=== PATIENT | female | born 1945 | race Caucasian/White ===

== ENCOUNTER → 2019-05-31 | Outpatient (CLI) | payer MEDICARE ==
[~2019-05-31] MED LIST: HYDROCODONE-AP1 EAC6 PO; LEXAPRO 10 MG T10 M2; PREDNISONE50 MG PO; PROAIR HFA8.5 GM IH; ZPAK PO
--- NOTE | 2019-05-31 15:10 | CARDNUC ---
[place] [address] CARDIAC NUCLEAR IMAGING REPORT Name: FRANKTERE Robyn Room: [facility]#: [id number] Admission: 05/31/19 Attend Phys: Jf Beauchamp, Discharge: Date of : 45 Date of Service: 05/31/19 1508 Report #: [id number] THIS REPORT FOR: cc: Tala Dunn Linda J. DO Liston, Michael J. MD [facility] ~ APPROVED REPORT Study performed: 05/31/2019 14:02:58 Exam: Nuclear Stress Test Indication: CAD , Dyspnea Patient Location: Out-Patient Stress Tech: Mendy Nolasco Stress Nurse: Kristal Christine RN NM Tech:COSTA Pantoja Ht: 5 ft 3 in Wt: 141 lbs BSA: 1.67 m2 BMI: 24.97 Medical History Medical History: hyperlipidemia Medications: atorvastatin, asa-81 Allergies: sulfa Cardiac Risk Factors: Age, FHX of CAD, Hyperlipidemia, Tobacco History (Former) Exercise History: Physically active Stress Test Details Stress Test: Exercise stress testing was performed using a Andre protocol. HR Resting HR: 82 bpm Max Heart Rate (APMHR): 147 bpm Max HR Achieved: 145 bpm Target HR (85% APMHR): 124 bpm % of APMHR: 98 Recovery HR: 96 bpm BP Resting BP: 152/77 mmHg Max BP: 211/73 mmHg ECG Resting ECG: Sinus Rhythm Stress ECG: [place] [address] CARDIAC NUCLEAR IMAGING REPORT Name: TERE MARIE Room: [facility]#: [id number] Admission: 05/31/19 Attend Phys: Jf Beauchamp, Discharge: Date of : 45 Date of Service: 05/31/19 1508 Report #: [id number] Change: None Arrhythmia: None Recovery ECG: Sinus Rhythm Recovery ST Change: None Recovery Arrhythmia: None Clinical Reason for Termination: Fatigue Exercise duration: 6 min 00 sec Exercise capacity: 7.05 METs Overall Exercise Capacity for Age: Superior Functional Aerobic Impairment 99% The patient tolerated exercise per standard Andre protocol without significant cardiac symptoms. Stress ECG Conclusion The baseline 12-lead EKG shows sinus rhythm without significant ST segment or T wave abnormality. EKGs obtained during and post exercise showed sinus rhythm and sinus tachycardia with no significant ST segment or T wave changes when compared to baseline. There were no stress-induced arrhythmias. NM EXAM: Myocardial Perfusion REST/STRESS Imaging Protocol: Rest Tc-99m/Stress Tc-99m 1 day Resting Data Rest SPECT myocardial perfusion imaging was performed in supine position 30 minutes following the intravenous injection of 10.6 mCi of Tc-99m Sestamibi. Time of rest injection: 1245 Date: 05/31/2019 The images were gated to evaluate regional wall motion and calculate left ventricular ejection fraction. Administration Route: IV Administration Site: Right Hand Exercise Stress At peak stress, the patient was injected intravenously with 32.6mCi of Tc-99m Sestamibi. Time of stress injection: 1405 Date: 05/31/2019 Administration Route: IV Administration Site: Right Hand Gated Stress SPECT was performed 30 minutes after stress injection. The images were gated to evaluate regional wall motion and calculate left ventricular ejection fraction. [place] [address] CARDIAC NUCLEAR IMAGING REPORT Name: TERE MARIE Room: [facility]#: [id number] Admission: 05/31/19 Attend Phys: Jf Beauchamp, Discharge: Date of : 45 Date of Service: 05/31/19 1508 Report #: [id number] Study Quality Study: Good Artifact: No artifact Study Data At rest, the left ventricular ejection fraction was 76%.. Post stress, the left ventricular ejection was 76%.. TID = 0.78. Perfusion Perfusion images obtained at rest and post exercise stress show uniform uptake of the radioisotope throughout the myocardium. There were no defects to suggest infarct or ischemia. Wall Motion Normal left ventricular wall motion. Nuclear Conclusion ECG Findings: negative for ischemia Clinical Findings: negative for ischemia Nuclear Findings: negative for ischemia Exercise Capacity: normal Left Ventricular Function: normal Risk Study: low Myocardial perfusion images show no defect to suggest infarct or ischemia. Left ventricular systolic function is normal on gated studies. This is a low risk study. <Conclusion> The baseline 12-lead EKG shows sinus rhythm without significant ST segment or T wave abnormality. EKGs obtained during and post exercise showed sinus rhythm and sinus tachycardia with no significant ST segment or T wave changes when compared to baseline. There were no stress-induced arrhythmias. <ELECTRONICALLY SIGNED> By: Jf Beauchamp MD, FACC 05/31/19 1508 1508 1508 Jf Beauchamp MD, FACC /INF
== END ==
LOC: M.NUC 04-19 12:51
DX: R06.02 Shortness of breath (principal); E78.5 Hyperlipidemia, unspecified; Z79.82 Long term (current) use of aspirin; Z79.899 Other long term (current) drug therapy; Z88.2 Allergy status to sulfonamides